=== PATIENT | female | born 1995 | race American Indian/Alaskan Native ===

== ENCOUNTER 2018-08-24 08:52 | Emergency (ER) | payer OTHER ==
[2018-08-24 09:00] VITALS: BP 123/76
--- NOTE | 2018-08-24 09:09 | Emergency Department Report ---
Chief Complaint: Urogenital-Female Stated Complaint: STD TESTING Time Seen by Provider: 08/24/18 09:00 - HPI History of Present Illness: Patient is a 22-year-old Female who is presenting for STD testing. Patient states she has no symptoms and denies abdominal pain or vaginal discharge. Patient was told by a former partner that she gave the chlamydia. - ROS Review of Systems: All other systems are reviewed and are negative - Exam Vital Signs: Vital Signs 08/24/18 08:59 Temperature 98.6 F Pulse Rate 93 H Respiratory 18 Rate Blood Pressure 123/76 [Right] O2 Sat by Pulse 97 Oximetry Physical Exam: Patient is alert and oriented 3 in no acute distress abdomen is soft and nontender. MSE screening note: Focused history and physical exam performed. Due to findings the following was ordered: ED Medical Decision Making - Medical Decision Making Patient is asymptomatic and has no emergent condition present. Patient has elected to not pale or $150 co-pay for treatment. [facility] referred to the [facility] and [facility]. ED Disposition for MSE Clinical Impression: Concern about STD in female without diagnosis Disposition: MED SCREENING EXAM-LEFT Is pt being admited?: No Does the pt Need Aspirin: No Condition: Stable Time of Disposition: :09
== END 2018-08-24 09:16 | disposition left against medical advice (07) ==
LOC: ED 08:52
DX: A64 Unspecified sexually transmitted disease (principal)
CPT/HCPCS: 99282